=== PATIENT | male | born 1980 | race Caucasian/White ===

== ENCOUNTER 2018-05-20 00:46 | Emergency (ER) | payer OTHER ==
[2018-05-20 01:05] VITALS: RESP 16
[2018-05-20] MEDS ORDERED: PROPARACAINE 0.5% OPHTH DROPS 15 ML BTL BOTH EYES STA (02:16)
--- NOTE | 2018-05-20 02:53 | ED ---
General Adult HPI - General Chief complaint: Eye Problems Stated complaint: Foreign body in eye Time Seen by Provider: 05/20/18 01:58 Source: patient Mode of arrival: ambulatory Limitations: no limitations - History of Present Illness Initial comments: 37-year-old male presents to the emergency department for a chief complaint of foreign body in the right eye. Patient states he was working on a steel yesterday when he felt a piece go into his eye. Patient states he flushed his eye thoroughly. However throughout the past 24 hours he has had worsening irritation in the right eye. Patient denies visual changes. Patient denies wearing safety glasses. Patient is not a contact lens wearer. Patient is up-to -date on tetanus. Patient denies any headache or significant pain posterior to the right eye. He denies any other injuries to the right eye. Patient has no other complaints at this time including shortness of breath, chest pain, abdominal pain, nausea or vomiting, headache, or visual changes. - Related Data Home Medications Medication Instructions Recorded Confirmed No Known Home Medications 05/20/18 05/20/18 Allergies Allergy/AdvReac Type Severity Reaction Status Date / Time No Known Allergies Allergy Verified 05/20/18 01:05 Review of Systems ROS Statement: Those systems with pertinent positive or pertinent negative responses have been documented in the HPI. ROS Other: All systems not noted in ROS Statement are negative. Past Medical History Past Medical History: No Reported History History of Any Multi-Drug Resistant Organisms: None Reported Past Surgical History: Orthopedic Surgery Additional Past Surgical History / Comment(s): rt knee Past Psychological History: No Psychological Hx Reported Smoking Status: Current every day smoker Past Alcohol Use History: Occasional Past Drug Use History: None Reported General Exam Limitations: no limitations General appearance: alert, in no apparent distress Head exam: Present: atraumatic, normocephalic, normal inspection Eye exam: Present: PERRL, EOMI, conjunctival injection (Erythema noted to the right conjunctiva), other (. there is a small corneal foreign body noted at 7: 00 in the right eye ). Absent: scleral icterus, periorbital swelling Expanded Eyelids: Normal Inspection: Bilateral Pupils: Regular, Round: Bilateral Sclera/Conjunctival: Injection: Right Visual acuity (R) = 20/: 25 Visual acuity (L) = 20/: 25 ENT exam: Present: normal exam, mucous membranes moist Neck exam: Present: normal inspection. Absent: tenderness, meningismus, lymphadenopathy Respiratory exam: Present: normal lung sounds bilaterally. Absent: respiratory distress, wheezes, rales, rhonchi, stridor Cardiovascular Exam: Present: regular rate, normal rhythm, normal heart sounds. Absent: systolic murmur, diastolic murmur, rubs, gallop, clicks Neurological exam: Present: alert, oriented X3, CN II-XII intact Psychiatric exam: Present: normal affect, normal mood Course Vital Signs 05/20/18 05/20/18 01:01 03:11 Temperature 98.2 F 97.3 F L Pulse Rate 71 56 L Respiratory 16 16 Rate Blood Pressure 122/82 131/73 O2 Sat by Pulse 98 94 L Oximetry Medical Decision Making - Medical Decision Making 37-year-old male presents to the emergency department for a chief complaint of foreign body in the right eye. Patient states this occurred yesterday and believes it is a small piece of steel. He denies visual changes. Visual acuity is intact, 20/25 in the left eye, 20/20 5 in the right eye, 20/20 in both eyes. On exam patient does have erythema noted of the right conjunctiva with a small foreign body noted at 7:00 in the cornea. This was easily removed with a Q-tip after being numbed with proparacaine. However rest ring did remain. [place] brush was used in attempt to remove rust ring. Most of the rust ring was removed however some does remain as I could not remove the deeper aspect of the ring. The right eye was stained with fluorescein, negative Brii sign. Patient was educated on the importance of following up with ophthalmology for removal of this rust ring and he agrees. He was given a referral and will call Monday. He was also given erythromycin ointment here in the emergency department that he will apply as directed. He will return if he has any worsening symptoms. Disposition Clinical Impression: Foreign body of right eye, Corneal rust ring of right eye Disposition: HOME SELF-CARE Condition: Good Instructions: Eye Foreign Body (ED) Additional Instructions: Please follow up with ophthalmology on Monday for rust ring. Use erythromycin ointment every 6 hours for 7 days. Please return to the emergency department if you have any worsening symptoms. Is patient prescribed a controlled substance at d/c from ED?: No Referrals: Dioni Mirza MD [STAFF PHYSICIAN] - 1-2 days Time of Disposition: 02:43
[2018-05-20] MEDS ORDERED: ERYTHROMYCIN 5 MG/GM OPHTH OINT 3.5 GM TUBE RIGHT EYE STA (02:55)
[2018-05-20 03:12] VITALS: BP 131/73; PULSE 56; TEMP 97.3
== END 2018-05-20 03:21 | disposition home or self-care (01) ==
LOC: EC 00:46
DX: T15.01XA Foreign body in cornea, right eye, initial encounter (principal); F17.200 Nicotine dependence, unspecified, uncomplicated; Y93.89 Activity, other specified; Y92.59 Other trade areas as the place of occurrence of the external cause
CPT/HCPCS: 65220; 99283

== ENCOUNTER 2023-06-13 20:32 | Emergency (ER) | payer BC ==
--- NOTE | 2023-06-13 20:55 | ED ---
General Adult HPI - General Source: patient, RN notes reviewed Mode of arrival: ambulatory Limitations: no limitations <Robert Mckeon - Last Filed: 06/13/23 20:44> - General Source: patient, RN notes reviewed Mode of arrival: ambulatory Limitations: no limitations <Mica Scott - Last Filed: 06/14/23 04:55> - General Chief complaint: Upper Respiratory Infection Stated complaint: SOB covid+ Time Seen by Provider: 06/13/23 20:44 - History of Present Illness Initial comments: 42-year-old male presents emergency Department with chief complaint of shortness of breath. Patient states she had pneumonia 2 months ago states that he started having shortness breath is placed on antibiotics and steroids. Patient states that he did not improve from that 2 weeks ago he test positive for COVID-19 was placed on Paxlovid and steroids. Patient states never recuperated states now has worsened since . He states he was at work tonight when his worsen including chest tightness, shortness of breath, cough. 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 (Robert Mckeon) This is a 42-year-old male who presents to the emergency department for coughing, congestion, and shortness of breath. Patient states that he had pneumonia a couple of months ago and was treated with antibiotics and steroids. He tested positive for Covid 2 weeks ago and was treated with paxlovid and steroids. He feels like he has never completely recovered. He has had a dry cough, and feels like he needs to cough up mucus but is unable to do so. He is a daily smoker. Denies ever being diagnosed with COPD or asthma. He does not use inhalers or breathing treatments at home. 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 (Mica Scott) - Related Data Home Medications Medication Instructions Recorded Confirmed Omeprazole [PriLOSEC] 20 mg PO AC-BRKFST 08/24/22 08/24/22 Venlafaxine HCl ER [Effexor Xr] 37.5 mg PO DAILY 08/24/22 08/24/22 Previous Rx's Medication Instructions Recorded Aspirin [Adult Low Dose Aspirin EC] 81 mg PO DAILY #30 tab 08/25/22 Atorvastatin Calcium [Lipitor] 40 mg PO DAILY #30 tab 08/25/22 Albuterol Sulfate [Albuterol 1 puff PO Q4-6H PRN #8.5 gm 06/14/23 Sulfate Hfa] Allergies Allergy/AdvReac Type Severity Reaction Status Date / Time No Known Allergies Allergy Verified 06/13/23 20:57 Review of Systems ROS Other: All systems not noted in ROS Statement are negative. <Robert Mckeon - Last Filed: 06/13/23 20:44> ROS Other: All systems not noted in ROS Statement are negative. <Mica Scott - Last Filed: 06/14/23 04:55> ROS Statement: Those systems with pertinent positive or pertinent negative responses have been documented in the HPI. Past Medical History Past Medical History: Hyperlipidemia History of Any Multi-Drug Resistant Organisms: None Reported Past Surgical History: Orthopedic Surgery Additional Past Surgical History / Comment(s): rt knee, wisdom teeth Past Psychological History: Anxiety, Depression Smoking Status: Current every day smoker Past Alcohol Use History: Heavy Additional Past Alcohol Use History / Comment(s): 24-26 beers per week Past Drug Use History: Cocaine, Marijuana - Past Family History Father Additional Family Medical History / Comment(s): Parkinsons <Robert Mckeon - Last Filed: 06/13/23 20:44> General Exam <Robert Mckeon - Last Filed: 06/13/23 20:44> Limitations: no limitations General appearance: alert, in no apparent distress Head exam: Present: atraumatic, normocephalic, normal inspection Respiratory exam: Present: normal lung sounds bilaterally. Absent: respiratory distress, wheezes, rales, rhonchi, stridor Cardiovascular Exam: Present: regular rate, normal rhythm, normal heart sounds. Absent: systolic murmur, diastolic murmur, rubs, gallop, clicks Neurological exam: Present: alert, oriented X3, CN II-XII intact Psychiatric exam: Present: normal affect, normal mood Skin exam: Present: warm, dry, intact, normal color. Absent: rash <Mica Scott - Last Filed: 06/14/23 04:55> - General Exam Comments Initial Comments: Visual Physical Exam Vital signs reviewed General: Well-appearing, nontoxic, no acute distress. Head: Normocephalic, atraumatic Eyes: PERRLA, EOMI ENT: Airway patent Chest: Nonlabored breathing Skin: No visual rash, normal skin tone Neuro: Alert and oriented 3 Musculoskeletal: No gross abnormalities (Robert Mckeon) Course Vital Signs 06/13/23 06/14/23 06/14/23 20:55 01:17 03:38 Temperature 99.2 F 98 F Pulse Rate 79 75 71 Respiratory 18 18 Rate Blood Pressure 142/99 136/87 O2 Sat by Pulse 97 98 Oximetry 06/14/23 06/14/23 03:48 04:10 Temperature 98.2 F Pulse Rate 90 81 Respiratory 18 Rate Blood Pressure 148/91 O2 Sat by Pulse 96 Oximetry Medical Decision Making <Robert Mckeon - Last Filed: 06/13/23 20:44> - Lab Data Result diagrams: 06/13/23 21:18 06/13/23 21:18 - Radiology Data Radiology results: report reviewed, image reviewed <Mica Scott - Last Filed: 06/14/23 04:55> - Medical Decision Making I completed the quick note portion of this chart signed Robert Mckeon PA-C (Robert Mckeon) This is a 42-year-old male who presents to the emergency department for shortness of breath. Was pt. sent in by a medical professional or institution? @ -No Did you speak to anyone other than the patient for history? @ -No Did you review nursing and triage notes? @ -Yes, and I agree, it is accurate with regards to the patient's symptoms. Were old charts reviewed? @ -No Differential Diagnosis? @ -Differential Dyspnea: Coronary syndrome, arrhythmia, tamponade, asthma, COPD, pulmonary embolism, pneumonia, pneumothorax, pulmonary effusion, anaphylaxis, diabetic ketoacidosis, flailed chest, pulmonary contusion, diaphragmatic rupture, anemia, neuromuscular, this is not meant to be an all-inclusive list. EKG interpreted by me (3pts min.)? @ -EKG interpreted by me demonstrating the following: Sinus rhythm. Ventricular rate 78 bpm, OH interval 151 ms, QRS duration 97 ms, QTC 408 ms. X-rays interpreted by me (1pt min.)? @ -Chest x-ray obtained, my interpretation identifies no localized consolidations or infiltrates. CT interpreted by me (1pt min.)? @ -Not obtained U/S interpreted by me (1pt. min.)? @ -Not obtained What testing was considered but not performed? (CT, X-rays, U/S, labs)? Why? @ -None What meds were considered but not given? Why? @ -None Did you discuss the management of the patient with other professionals? @ -No Did you reconcile home meds? @ -No Was smoking cessation discussed for >3mins.? @ -I discussed smoking cessation for greater than 3 minutes. The risk of smoking were discussed with the patient including but not limited to risks of cancer, stroke, coronary artery disease and COPD. Also discussed with patient were multiple methods of quitting smoking. Lastly we discussed the financial cost of smoking. Was critical care preformed (if so, how long)? @ -No Were there social determinants of health that impacted care today? How? (Homelessness, low income, unemployed, alcoholism, drug addiction, transportation, low edu. Level, literacy, decrease access to med. care, senior care, rehab)? @ -No Was there de-escalation of care discussed even if they declined? (Discuss DNR or withdrawal of care, Hospice)? @ -No What co-morbidities impacted this encounter? (DM, HTN, Smoking, COPD, CAD, Cancer, CVA, Hep., AIDS, mental health diagnosis, sleep apnea, morbid obesity)? @ -Smoking Was patient admitted / discharged? @ -Discharged. Lab work obtained and found to be unremarkable. Covid, influenza, and RSV testing were negative. Chest x-ray reveals no acute process. Discussed with the patient that the cause of his symptoms is not entirely clear. It may be that his body is taking longer to recover from the pneumonia and Covid he recently experienced. It could also be related to him inhaling diesel fumes at his job. The smoking is also likely contributing to this. He was given a DuoNeb breathing treatment, but was unsure if it offered any benefit. He was given a prescription for an albuterol inhaler to try using when symptoms occur. Otherwise advised close follow-up with his primary care provider. Undiagnosed new problem with uncertain prognosis? @ -None Drug Therapy requiring intensive monitoring for toxicity (Heparin, Nitro, Insulin, Cardizem)? @ -None Were any procedures done? @ -None Diagnosis/symptom? @ -Shortness of breath Acute, or Chronic, or Acute on Chronic? @ -Acute Uncomplicated (without systemic symptoms) or Complicated (systemic symptoms)? @ -Uncomplicated Side effects of treatment? @ -None Exacerbation, Progression, or Severe Exacerbation] @ -Not applicable Poses a threat to life or bodily function? @ -No Return precautions reviewed in depth, the patient is instructed to return to the emergency department with any new, worsening, or concerning symptoms. Patient verbalized understanding. This case was discussed in detail with the attending ED physician, Dr. Farris. Presentation, findings, and treatment plan discussed in detail as well. (Mica Scott) - Lab Data Lab Results 06/13/23 06/13/23 06/13/23 Range/Units 21:18 21:18 21:18 WBC 9.9 (3.8-10.6) k/uL RBC 5.40 (4.30-5.90) m/uL Hgb 15.8 (13.0-17.5) gm/dL Hct 47.2 (39.0-53.0) % MCV 87.4 (80.0-100.0) fL MCH 29.4 (25.0-35.0) pg MCHC 33.6 (31.0-37.0) g/dL RDW 12.3 (11.5-15.5) % Plt Count 229 (150-450) k/uL MPV 6.9 Neutrophils % 62 % Lymphocytes % 29 % Monocytes % 4 % Eosinophils % 2 % Basophils % 1 % Neutrophils # 6.2 (1.3-7.7) k/uL Lymphocytes # 2.9 (1.0-4.8) k/uL Monocytes # 0.4 (0-1.0) k/uL Eosinophils # 0.2 (0-0.7) k/uL Basophils # 0.1 (0-0.2) k/uL PT 9.9 L (10.0-12.5) sec INR 0.9 (<1.2) APTT 26.6 (22.0-30.0) sec Sodium 139 (137-145) mmol/L Potassium 4.2 (3.5-5.1) mmol/L Chloride 106 (98-107) mmol/L Carbon Dioxide 21 L (22-30) mmol/L Anion Gap 12 mmol/L BUN 21 H (9-20) mg/dL Creatinine 0.80 (0.66-1.25) mg/dL Est GFR (CKD-EPI)AfAm >90 (>60 ml/min/1.73 sqM) Est GFR (CKD-EPI)NonAf >90 (>60 ml/min/1.73 sqM) Glucose 100 H (74-99) mg/dL Plasma Lactic Acid Mingo (0.7-2.0) mmol/L Calcium 9.3 (8.4-10.2) mg/dL Total Bilirubin 0.5 (0.2-1.3) mg/dL AST 27 (17-59) U/L ALT 36 (4-49) U/L Alkaline Phosphatase 118 (38-126) U/L Troponin I (0.000-0.034) ng/mL NT-Pro-B Natriuret Pep 45 pg/mL Total Protein 7.2 (6.3-8.2) g/dL Albumin 4.5 (3.5-5.0) g/dL Influenza Type A (PCR) (Not Detectd) Influenza Type B (PCR) (Not Detectd) RSV (PCR) (Not Detectd) SARS-CoV-2 (PCR) (Not Detectd) 06/13/23 06/13/23 06/13/23 Range/Units 21:18 21:18 21:18 WBC (3.8-10.6) k/uL RBC (4.30-5.90) m/uL Hgb (13.0-17.5) gm/dL Hct (39.0-53.0) % MCV (80.0-100.0) fL MCH (25.0-35.0) pg MCHC (31.0-37.0) g/dL RDW (11.5-15.5) % Plt Count (150-450) k/uL MPV Neutrophils % % Lymphocytes % % Monocytes % % Eosinophils % % Basophils % % Neutrophils # (1.3-7.7) k/uL Lymphocytes # (1.0-4.8) k/uL Monocytes # (0-1.0) k/uL Eosinophils # (0-0.7) k/uL Basophils # (0-0.2) k/uL PT (10.0-12.5) sec INR (<1.2) APTT (22.0-30.0) sec Sodium (137-145) mmol/L Potassium (3.5-5.1) mmol/L Chloride (98-107) mmol/L Carbon Dioxide (22-30) mmol/L Anion Gap mmol/L BUN (9-20) mg/dL Creatinine (0.66-1.25) mg/dL Est GFR (CKD-EPI)AfAm (>60 ml/min/1.73 sqM) Est GFR (CKD-EPI)NonAf (>60 ml/min/1.73 sqM) Glucose (74-99) mg/dL Plasma Lactic Acid Mingo 1.2 (0.7-2.0) mmol/L Calcium (8.4-10.2) mg/dL Total Bilirubin (0.2-1.3) mg/dL AST (17-59) U/L ALT (4-49) U/L Alkaline Phosphatase (38-126) U/L Troponin I <0.012 (0.000-0.034) ng/mL NT-Pro-B Natriuret Pep pg/mL Total Protein (6.3-8.2) g/dL Albumin (3.5-5.0) g/dL Influenza Type A (PCR) Not Detected (Not Detectd) Influenza Type B (PCR) Not Detected (Not Detectd) RSV (PCR) Not Detected (Not Detectd) SARS-CoV-2 (PCR) Not Detected (Not Detectd) Disposition <Robert Mckeon - Last Filed: 06/13/23 20:44> Is patient prescribed a controlled substance at d/c from ED?: No <Mica Scott - Last Filed: 06/14/23 04:55> Clinical Impression: Shortness of breath Disposition: HOME SELF-CARE Instructions (If sedation given, give patient instructions): Dyspnea (ED), Shortness of Breath (ED) Additional Instructions: Return to the emergency department with any new, worsening, or concerning symptoms. You can try using the albuterol inhaler every 4-6 hours as needed. Follow up with your primary care provider. Prescriptions: Albuterol Sulfate [Albuterol Sulfate Hfa] 1 puff PO Q4-6H PRN #8.5 gm PRN Reason: Shortness Of Breath Referrals: kSy Browne Jr, DO [Primary Care Provider] - 1-2 days
[2023-06-13 20:57] VITALS: RESP 18
[2023-06-13 21:25] LABS: Basophils # (A) 0.1 k/uL (0-0.2); Basophils % (A) 1 %; Eosinophils # (A) 0.2 k/uL (0-0.7); Eosinophils % (A) 2 %; HCT 47.2 % (39.0-53.0); HGB 15.8 gm/dL (13.0-17.5); Lymphocytes # (A) 2.9 k/uL (1.0-4.8); Lymphocytes % (A) 29 %; MCH 29.4 pg (25.0-35.0); MCHC 33.6 g/dL (31.0-37.0); MCV 87.4 fL (80.0-100.0); Mean Platelet Volume 6.9; Monocytes # (A) 0.4 k/uL (0-1.0); Monocytes % (A) 4 %; Neutrophils # (A) 6.2 k/uL (1.3-7.7); Neutrophils % (A) 62 %; Platelet Count 229 k/uL (150-450); RDW 12.3 % (11.5-15.5); WBC 9.9 k/uL (3.8-10.6)
[2023-06-13 21:38] LABS: ALT 36 U/L (4-49); AST 27 U/L (17-59); African American GFR (CKD) >90 (>60 ml/min/1.73 sqM); Albumin 4.5 g/dL (3.5-5.0); Alkaline Phosphatase 118 U/L (38-126); Anion Gap 12 mmol/L; Blood Urea Nitrogen 21 mg/dL (9-20); Calcium 9.3 mg/dL (8.4-10.2); Carbon Dioxide 21 mmol/L (22-30); Chloride 106 mmol/L (98-107); Glucose 100 mg/dL (74-99); Non-African American GFR(CKD) >90 (>60 ml/min/1.73 sqM); Potassium 4.2 mmol/L (3.5-5.1); Sodium 139 mmol/L (137-145); Total Bilirubin 0.5 mg/dL (0.2-1.3); Total Protein 7.2 g/dL (6.3-8.2)
[2023-06-13 21:47] LABS: NT-Pro-B-Type Natriuretic Pept 45 pg/mL
[2023-06-13 21:54] LABS: INR 0.9 (<1.2); Partial Thromboplastin Time 26.6 sec (22.0-30.0); Prothrombin Time 9.9 sec (10.0-12.5)
--- NOTE | 2023-06-13 21:59 | XR ---
EXAMINATION TYPE: XR chest 2V DATE OF EXAM: 06/13/2023 9:30 PM CLINICAL INDICATION:Male, 42 years old with history of difficulty breathing; COMPARISON: Chest radiographs from 08/24/2022. TECHNIQUE: XR chest 2V Frontal and lateral views of the chest. FINDINGS: Lungs/Pleura: There is no evidence of pleural effusion, focal consolidation, or pneumothorax. Pulmonary vascularity: Unremarkable. Heart/mediastinum: Cardiomediastinal silhouette is unremarkable. Musculoskeletal: No acute osseous pathology. Other findings: None IMPRESSION: No acute cardiopulmonary disease/process.
[2023-06-14] MEDS ORDERED: IPRATROPIUM-ALBUTEROL 3 ML NEB INHALATION STA (01:48)
[2023-06-14] MEDS ORDERED: DEXAMETHASONE SOD PHOSPHATE 10 MG/ML 1 ML VIAL IVP STA (02:20)
[2023-06-14 04:27] VITALS: BP 148/91; PULSE 81; TEMP 98.2
== END 2023-06-14 04:16 | disposition home or self-care (01) ==
LOC: EC 20:32
DX: R06.02 Shortness of breath (principal); F32.A Depression, unspecified; F41.9 Anxiety disorder, unspecified; F17.210 Nicotine dependence, cigarettes, uncomplicated; F12.90 Cannabis use, unspecified, uncomplicated; F14.90 Cocaine use, unspecified, uncomplicated; Z20.822 Contact with and (suspected) exposure to COVID-19; Z79.899 Other long term (current) drug therapy; Z86.73 Personal history of transient ischemic attack (TIA), and cerebral infarction without residual deficits
CPT/HCPCS: 36415; 71046; 80053; 83605; 83880; 84484; 85025; 85610; 85730; 87636; 93005; 94640; 96374; 99285; 99406

== ENCOUNTER → 2023-10-24 | Outpatient (CLI) | payer BC ==
--- NOTE | 2023-10-30 23:25 | P.PCN ---
Date of Procedure: 10/24/23 Operative Findings: Home sleep study testing Date of service is 10/24/2023 History This is a 43-year-old male patient complaining of snoring along with sleep fragmentation and significant amount of weight gain over the years. . He has a Mallampati class IV. He has a high clinical suspicion for obstructive sleep apnea. Based on that, a home sleep study was ordered for this patient. Pertinent physical findings The height is 5 feet and 11 inches and the weight is 260 pounds with a BMI of 36.3 Technical description The [email or web address] Ap[employer] system was used to complete home sleep study. 3 home sleep study. The total recording duration was 9 hours and 36 minutes. The study started at 7:56 PM and ended at 5:33 AM and the patient had a total of 9 hours and 24 minutes of flow monitoring and 9 hours on 25 minutes of oxygen saturation monitoring Results Respiratory analysis showed a total of 3 obstructive apneas and 98 obstructive hypopneas with an AHI of 10.7 without major worsening in the supine body position Oxygenation analysis The patient had episodes of nocturnal oxygen desaturation with a minimum pulse ox of 79% during sleep. Average pulse ox during sleep was 92% and the patient spent approximately 7 minutes of sleep time below pulse ox of 89% Cardiac summary Average heart rate was 60 with a minimum heart rate of 43 and a maximum heart rate of 103 Assessment Mild obstructive sleep apnea with an AHI of 10.7 associated with some mild nocturnal oxygen saturations. Obesity with a BMI of 36.3 Chronic dyspnea Snoring Plan Will offer the patient an APAP machine. This will be set at a pressure of 5/15 cm of water with appropriate mask interface. CPAP therapy should be able to i mprove the patient's sleep quality eliminate the snoring and improve his daytime symptoms of hypersomnia and sleepiness. If willing to undertake the treatment, we will proceed with a CPAP therapy and the patient will see him back in the office in 30 to 90 days to assess clinical response and compliancy. At the same time, the patient is to work on losing weight, optimizing sleep hygiene measures, sleeping on the side and maintaining a regular sleep schedule. Will continue to follow.
== END ==
LOC: 3 N SLEEP 16:35
PROVIDERS: ATTEND Internal Medicine Critical Care Medicine
DX: G47.33 Obstructive sleep apnea (adult) (pediatric) (principal); G47.36 Sleep related hypoventilation in conditions classified elsewhere; E66.9 Obesity, unspecified; R06.09 Other forms of dyspnea; F17.200 Nicotine dependence, unspecified, uncomplicated; Z68.36 Body mass index [BMI] 36.0-36.9, adult

== ENCOUNTER → 2023-12-08 | Outpatient (CLI) | payer BC ==
--- NOTE | 2023-12-08 12:47 | CT ---
EXAMINATION TYPE: CT chest wo con DATE OF EXAM: 12/08/2023 COMPARISON: None HISTORY: R06.09 OTHER FORMS OF DYSPNEA High-resolution noncontrast CT of the chest was performed with the patient in the prone and supine po sitions. Lung and mediastinal window settings are submitted. The lungs appear to be well-aerated. Scattered areas of groundglass infiltrate of upper lobes bilater ally may reflect a postinflammatory/inflammatory change. Correlate clinically. I do not see evidence for fibrotic change. There is no evidence for bronchiectasis, airspace consolidation, nodule or mas s. No pleural effusion is identified. I do not see evidence for hilar or mediastinal mass or adenop athy. IMPRESSION: Scattered areas of groundglass infiltrate of upper lobes bilaterally may reflect a postinflammatory/i nflammatory change. Correlate clinically.
== END | disposition home or self-care (01) ==
LOC: RADCTMAIN 11:22
PROVIDERS: ATTEND Internal Medicine Critical Care Medicine
DX: R91.8 Other nonspecific abnormal finding of lung field (principal); R06.09 Other forms of dyspnea
CPT/HCPCS: 71250

== ENCOUNTER 2024-06-24 02:54 | Emergency (ER) | payer BC ==
[2024-06-24 02:59] VITALS: RESP 18; TEMP 98
--- NOTE | 2024-06-24 03:00 | ED ---
ENT HPI - General Source: patient, RN notes reviewed Mode of arrival: ambulatory Limitations: no limitations <Melissa Nuñez - Last Filed: 06/24/24 03:53> <Curt Smith - Last Filed: 06/24/24 05:11> - General Chief complaint: ENT Stated complaint: Chest pain Time Seen by Provider: 06/24/24 03:00 - History of Present Illness Initial comments: This is a 43-year-old male with a history of tobacco abuse, Hui's esophagus, and GERD presenting to the emergency department for complaint of hemoptysis, epistaxis, and chest pain. He states that over the past 2 days he has been experiencing hemoptysis in addition to melena and hematochezia. Patient was concerned as he had a nosebleed earlier today that was difficult to control. Patient has baseline mid chest pain due to his acid reflux however states that over the past 2 days this pain has worsened described as a burning sensation. He denies associated shortness of breath, abdominal pain, hematuria or dysuria. Reports history of hemorrhoids. Patient follows with GI specialist, Dr. Michel. (Melissa Nuñez) - Related Data Home Medications Medication Instructions Recorded Confirmed Omeprazole [PriLOSEC] 20 mg PO AC-BRKFST 08/24/22 08/24/22 Venlafaxine HCl ER [Effexor Xr] 37.5 mg PO DAILY 08/24/22 08/24/22 Previous Rx's Medication Instructions Recorded Aspirin [Adult Low Dose Aspirin EC] 81 mg PO DAILY #30 tab 08/25/22 Atorvastatin Calcium [Lipitor] 40 mg PO DAILY #30 tab 08/25/22 Albuterol Sulfate [Albuterol 1 puff PO Q4-6H PRN #8.5 gm 06/14/23 Sulfate Hfa] Allergies Allergy/AdvReac Type Severity Reaction Status Date / Time No Known Allergies Allergy Verified 06/24/24 02:59 Review of Systems ROS Other: All systems not noted in ROS Statement are negative. <Melissa Nuñez - Last Filed: 06/24/24 03:53> ROS Other: All systems not noted in ROS Statement are negative. <Curt Smith - Last Filed: 06/24/24 05:11> ROS Statement: Those systems with pertinent positive or pertinent negative responses have been documented in the HPI. Past Medical History Past Medical History: CVA/TIA, Hyperlipidemia History of Any Multi-Drug Resistant Organisms: None Reported Past Surgical History: Orthopedic Surgery Additional Past Surgical History / Comment(s): rt knee, wisdom teeth Past Psychological History: Anxiety, Bipolar, Depression Smoking Status: Current every day smoker Past Alcohol Use History: Heavy Past Drug Use History: Cocaine, Marijuana - Past Family History Father Additional Family Medical History / Comment(s): Parkinsons <Melissa Nuñez - Last Filed: 06/24/24 03:53> General Exam Limitations: no limitations General appearance: alert, in no apparent distress, appears intoxicated ENT exam: Present: normal exam, mucous membranes moist Neck exam: Present: normal inspection. Absent: tenderness, meningismus, lymphadenopathy Respiratory exam: Present: normal lung sounds bilaterally. Absent: respiratory distress, wheezes, rales, rhonchi, stridor Cardiovascular Exam: Present: regular rate, normal rhythm, normal heart sounds. Absent: systolic murmur, diastolic murmur, rubs, gallop, clicks GI/Abdominal exam: Present: soft, distended, normal bowel sounds. Absent: tenderness, guarding, rebound, rigid, mass, pulsatile mass Extremities exam: Present: normal inspection, full ROM, normal capillary refill. Absent: tenderness, pedal edema, joint swelling, calf tenderness Back exam: Present: normal inspection Skin exam: Present: warm, dry, intact, normal color. Absent: rash <Melissa Nuñez - Last Filed: 06/24/24 03:53> Course Vital Signs 06/24/24 02:55 Temperature 98 F Pulse Rate 80 Respiratory 18 Rate Blood Pressure 152/100 O2 Sat by Pulse 98 Oximetry Medical Decision Making - Lab Data Result diagrams: 06/24/24 03:28 <Melissa Nuñez - Last Filed: 06/24/24 03:53> - Lab Data Result diagrams: 06/24/24 03:28 06/24/24 03:28 <Curt Smith - Last Filed: 06/24/24 05:11> - Medical Decision Making Was pt. sent in by a medical professional or institution (, PA, AUTOCAD OPERATOR, urgent care, hospital, or [place] [facility] facility...) When possible be specific @ -[No] Did you speak to anyone other than the patient for history (EMS, parent, family, police, friend...)? What history was obtained from this source @ -[No] Did you review nursing and triage notes (agree or disagree)? Why? @ -[I reviewed and agree with nursing and triage notes] Were old charts reviewed (outside hosp., previous admission, EMS record, old EKG, old radiological studies, urgent care reports/EKG's, [place] [facility] facility records)? Report findings @ -[No old charts were reviewed] Differential Diagnosis (chest pain, altered mental status, abdominal pain women, abdominal pain men, vaginal bleeding, weakness, fever, dyspnea, syncope, headache, dizziness, GI bleed, back pain, seizure, CVA, palpatations, mental health, musculoskeletal)? @ -Differential GI Bleed: Esophageal varices, aortoenteric fistula, Genevieve-Dempsey, gastritis, peptic ulcer disease, diverticulosis, inflammatory bowel disease, hemorrhoids, fissure, colitis, malignancy, Meckel's diverticulum, this is not meant to be an all- inclusive list. EKG interpreted by me (3pts min.). @ -Completed at 335 sinus rhythm with a ventricular rate of 73, AL interval 167, QRS 90, QTc 405. X-rays interpreted by me (1pt min.). @ -[None done] CT interpreted by me (1pt min.). @ -[None done] U/S interpreted by me (1pt. min.). @ -[None done] What testing was considered but not performed or refused? (CT, X-rays, U/S, labs)? Why? @ -[None] What meds were considered but not given or refused? Why? @ -[None] Did you discuss the management of the patient with other professionals (professionals i.e. , PA, AUTOCAD OPERATOR, lab, RT, psych nurse, director of social work, priming machine operator, teacher, medical officer psychiatry, caser)? Give summary @ -[No] Was smoking cessation discussed for >3mins.? @ -[No] Was critical care preformed (if so, how long)? @ -[No] Were there social determinants of health that impacted care today? How? (Homelessness, low income, unemployed, alcoholism, drug addiction, transportation, low edu. Level, literacy, decrease access to med. care, long-term, rehab)? @ -[No] Was there de-escalation of care discussed even if they declined (Discuss DNR or withdrawal of care, Hospice)? DNR status @ -[No] What co-morbidities impacted this encounter? (DM, HTN, Smoking, COPD, CAD, Cancer, CVA, ARF, Chemo, Hep., AIDS, mental health diagnosis, sleep apnea, morbid obesity)? @ -[None] Was patient admitted / discharged? Hospital course, mention meds given and route, prescriptions, significant lab abnormalities, going to OR and other pertinent info. @ -This is a 43-year-old male presenting with hemoptysis, melena, epistaxis. Patient is noted to be intoxicated on arrival and states that he has had multiple beers prior to arrival. He is hypertensive with a blood pressure 152/100. Physical exam remarkable for a distended abdomen with no tenderness. With concern for symptoms of GI bleed patient will undergo laboratory testing including chest x-ray and EKG. EKG sinus rhythm. CBC is unremarkable. patient is signed out to my attending, Dr. Smith, pending laboratory results and disposition. Undiagnosed new problem with uncertain prognosis? @ -[No] Drug Therapy requiring intensive monitoring for toxicity (Heparin, Nitro, Insulin, Cardizem)? @ -[No] Were any procedures done? @ -[No] Diagnosis/symptom? @ -[default] Acute, or Chronic, or Acute on Chronic? @ -[default] Uncomplicated (without systemic symptoms) or Complicated (systemic symptoms)? @ -[default] Side effects of treatment? @ -[No] Exacerbation, Progression, or Severe Exacerbation? @ -[No] Poses a threat to life or bodily function? How? (Chest pain, [place], ND, pneumonia, PE, COPD, DKA, ARF, appy, cholecystitis, CVA, Diverticulitis, Homicidal, Suicidal, threat to staff... and all critical care pts) @ -[No] (Melissa Nuñez) Patient care signed out to me pending laboratory evaluation. Labs are unremarkable. Hemoglobin stable. Patient reevaluated at the bedside. Found to be stable to condition. Patient be discharged. (Curt Smith) - Lab Data Lab Results 01/06/25 01/06/25 01/06/25 Range/Units 03:28 03:28 03:28 WBC 9.4 (3.8-10.6) k/uL RBC 5.34 (4.30-5.90) m/uL Hgb 15.6 (13.0-17.5) gm/dL Hct 45.3 (39.0-53.0) % MCV 84.9 (80.0-100.0) fL MCH 29.2 (25.0-35.0) pg MCHC 34.4 (31.0-37.0) g/dL RDW 13.3 (11.5-15.5) % Plt Count 272 (150-450) k/uL MPV 7.2 Neutrophils % 59 % Lymphocytes % 31 % Monocytes % 5 % Eosinophils % 4 % Basophils % 1 % Neutrophils # 5.5 (1.3-7.7) k/uL Lymphocytes # 2.9 (1.0-4.8) k/uL Monocytes # 0.4 (0-1.0) k/uL Eosinophils # 0.3 (0-0.7) k/uL Basophils # 0.1 (0-0.2) k/uL PT 10.8 (10.0-12.5) sec INR 1.0 (<1.2) APTT 26.3 (22.0-30.0) sec Sodium 142 (137-145) mmol/L Potassium 4.3 (3.5-5.1) mmol/L Chloride 106 (98-107) mmol/L Carbon Dioxide 22 (22-30) mmol/L Anion Gap 14 mmol/L BUN 13 (9-20) mg/dL Creatinine 0.89 (0.66-1.25) mg/dL Est GFR (CKD-EPI)AfAm >90 (>60 ml/min/1.73 sqM) Est GFR (CKD-EPI)NonAf >90 (>60 ml/min/1.73 sqM) Glucose 108 H (74-99) mg/dL Plasma Lactic Acid Mingo (0.7-2.0) mmol/L Calcium 9.0 (8.4-10.2) mg/dL Magnesium 2.3 (1.6-2.3) mg/dL Total Bilirubin 0.5 (0.2-1.3) mg/dL AST 30 (17-59) U/L ALT 44 (4-49) U/L Alkaline Phosphatase 142 H (38-126) U/L Total Protein 7.1 (6.3-8.2) g/dL Albumin 4.8 (3.5-5.0) g/dL Lipase 206 (23-300) U/L 06/24/24 Range/Units 03:28 WBC (3.8-10.6) k/uL RBC (4.30-5.90) m/uL Hgb (13.0-17.5) gm/dL Hct (39.0-53.0) % MCV (80.0-100.0) fL MCH (25.0-35.0) pg MCHC (31.0-37.0) g/dL RDW (11.5-15.5) % Plt Count (150-450) k/uL MPV Neutrophils % % Lymphocytes % % Monocytes % % Eosinophils % % Basophils % % Neutrophils # (1.3-7.7) k/uL Lymphocytes # (1.0-4.8) k/uL Monocytes # (0-1.0) k/uL Eosinophils # (0-0.7) k/uL Basophils # (0-0.2) k/uL PT (10.0-12.5) sec INR (<1.2) APTT (22.0-30.0) sec Sodium (137-145) mmol/L Potassium (3.5-5.1) mmol/L Chloride (98-107) mmol/L Carbon Dioxide (22-30) mmol/L Anion Gap mmol/L BUN (9-20) mg/dL Creatinine (0.66-1.25) mg/dL Est GFR (CKD-EPI)AfAm (>60 ml/min/1.73 sqM) Est GFR (CKD-EPI)NonAf (>60 ml/min/1.73 sqM) Glucose (74-99) mg/dL Plasma Lactic Acid [place] 1.5 (0.7-2.0) mmol/L Calcium (8.4-10.2) mg/dL Magnesium (1.6-2.3) mg/dL Total Bilirubin (0.2-1.3) mg/dL AST (17-59) U/L ALT (4-49) U/L Alkaline Phosphatase (38-126) U/L Total Protein (6.3-8.2) g/dL Albumin (3.5-5.0) g/dL Lipase (23-300) U/L Disposition <Melissa Nuñez - Last Filed: 06/24/24 03:53> Is patient prescribed a controlled substance at d/c from ED?: No Time of Disposition: 05:11 <Curt Smith - Last Filed: 06/24/24 05:11> Clinical Impression: Epistaxis, Hemoptysis Disposition: HOME SELF-CARE Condition: Good Instructions (If sedation given, give patient instructions): Nosebleed (ED) Referrals: None,Stated [REFERRING] - 1-2 days
[2024-06-24 03:44] LABS: Basophils # (A) 0.1 k/uL (0-0.2); Basophils % (A) 1 %; Eosinophils # (A) 0.3 k/uL (0-0.7); Eosinophils % (A) 4 %; HCT 45.3 % (39.0-53.0); HGB 15.6 gm/dL (13.0-17.5); Lymphocytes # (A) 2.9 k/uL (1.0-4.8); Lymphocytes % (A) 31 %; MCH 29.2 pg (25.0-35.0); MCHC 34.4 g/dL (31.0-37.0); MCV 84.9 fL (80.0-100.0); Mean Platelet Volume 7.2; Monocytes # (A) 0.4 k/uL (0-1.0); Monocytes % (A) 5 %; Neutrophils # (A) 5.5 k/uL (1.3-7.7); Neutrophils % (A) 59 %; Platelet Count 272 k/uL (150-450); RBC 5.34 m/uL (4.30-5.90); RDW 13.3 % (11.5-15.5); WBC 9.4 k/uL (3.8-10.6)
[2024-06-24 03:53] LABS: Partial Thromboplastin Time 26.3 sec (22.0-30.0); Prothrombin Time 10.8 sec (10.0-12.5)
[2024-06-24 04:14] LABS: ALT 44 U/L (4-49); AST 30 U/L (17-59); African American GFR (CKD) >90 (>60 ml/min/1.73 sqM); Albumin 4.8 g/dL (3.5-5.0); Alkaline Phosphatase 142 U/L (38-126); Anion Gap 14 mmol/L; Blood Urea Nitrogen 13 mg/dL (9-20); Carbon Dioxide 22 mmol/L (22-30); Chloride 106 mmol/L (98-107); Glucose 108 mg/dL (74-99); Lipase 206 U/L (23-300); Magnesium 2.3 mg/dL (1.6-2.3); Non-African American GFR(CKD) >90 (>60 ml/min/1.73 sqM); Potassium 4.3 mmol/L (3.5-5.1); Sodium 142 mmol/L (137-145); Total Bilirubin 0.5 mg/dL (0.2-1.3); Total Protein 7.1 g/dL (6.3-8.2)
--- NOTE | 2024-06-24 05:05 | XR ---
EXAM: XR Chest, 2 Views CLINICAL HISTORY: ITS.REASON XR Reason: chest pain TECHNIQUE: Frontal and lateral views of the chest. COMPARISON: No relevant prior studies available. FINDINGS: Lungs: No consolidation or mass. Pleural space: No effusion. Heart: No cardiomegaly. Bones/joints: No acute findings. IMPRESSION: No acute cardiopulmonary process.
[2024-06-24 05:38] VITALS: BP 142/93; PULSE 87
== END 2024-06-24 05:38 | disposition home or self-care (01) ==
LOC: EC 02:54
DX: R04.2 Hemoptysis (principal); R04.0 Epistaxis; F17.200 Nicotine dependence, unspecified, uncomplicated; Z86.73 Personal history of transient ischemic attack (TIA), and cerebral infarction without residual deficits
CPT/HCPCS: 36415; 71046; 80053; 83605; 83690; 83735; 84484; 85025; 85610; 85730; 93005; 99285